=== PATIENT | male | born 1940 | race Two or more races ===

== ENCOUNTER 2020-07-14 14:09 | Outpatient (CLI) | payer OTHER | END 2020-07-14 14:20 | disposition home or self-care (01) | LOC: LAB 14:09 | PROVIDERS: ATTEND Specialist | DX: K38.2 Diverticulum of appendix (principal) ==

== ENCOUNTER → 2020-07-14 | Outpatient (CLI) | payer OTHER | END | disposition home or self-care (01) | LOC: TOM 15:11 | PROVIDERS: ATTEND Specialist | DX: K57.90 Diverticulosis of intestine, part unspecified, without perforation or abscess without bleeding (principal); K44.9 Diaphragmatic hernia without obstruction or gangrene; K59.09 Other constipation; K38.2 Diverticulum of appendix ==

== ENCOUNTER 2020-08-04 09:31 | Emergency (ER) | payer OTHER ==
[~2020-08-04] VITALS: Ht 170.2 cm; Wt 70.8 kg
== END 2020-08-04 11:30 | disposition home or self-care (01) ==
LOC: ER 09:31
DX: R53.81 Other malaise (principal); F06.4 Anxiety disorder due to known physiological condition; Z03.818 Encounter for observation for suspected exposure to other biological agents ruled out

== ENCOUNTER 2021-12-19 09:39 | Outpatient (CLI) | payer OTHER | END 2021-12-19 09:45 | disposition home or self-care (01) | LOC: TOM 09:39 | PROVIDERS: ATTEND Specialist | DX: K40.90 Unilateral inguinal hernia, without obstruction or gangrene, not specified as recurrent (principal) ==

== ENCOUNTER 2022-02-27 05:45 | Day surgery (SDC) | payer OTHER ==
[~2022-02-27] VITALS: Ht 162.6 cm; Wt 60.3 kg
== END 2022-02-27 15:50 | disposition home or self-care (01) ==
LOC: CIR.AMB 05:45
PROVIDERS: ATTEND Specialist
DX: K40.90 Unilateral inguinal hernia, without obstruction or gangrene, not specified as recurrent (principal); Z20.822 Contact with and (suspected) exposure to COVID-19

== ENCOUNTER 2023-04-23 09:51 | Emergency (ER) | payer OTHER ==
[~2023-04-23] VITALS: Ht 162.6 cm; Wt 62.6 kg
[2023-04-23] MEDS ORDERED: SILODOSIN8 MG PO (10:27)
[2023-04-23 13:55] LABS: HEMATOCRIT 37.9 % (39.0-48.0); MEAN CELL VOLUME 93.6 fL (80.0-100.00); MEAN CORPUSCULAR HGB CONC 34.2 g/dl (32.0-36.0); PLATELET COUNT 178 K/uL (150-450); RED BLOOD COUNT 4.05 M/uL (4.00-6.00); RED CELL DISTRIBUTION WIDTH 13.9 % (11.5-14.5)
[2023-04-23 14:09] LABS: ALBUMIN 3.9 gm/dL (3.4-5.0); BILIRUBIN TOTAL 0.46 mg/dL (0.3-1.2); CALCIUM 9.5 mg/dL (8.5-10.1); CREATININE SERUM 0.96 mg/dL (0.70-1.30); GFR 75.17; GLOBULINA 4.2 G/DL (2.4-3.5); POTASSIUM 4.9 mEq/L (3.5-5.1); TOTAL PROTEIN 8.1 gm/dL (6.4-8.2)
[2023-04-23] MEDS ORDERED: TAMS0.4C PO (15:38)
[2023-04-23] MEDS ORDERED: MOTRIN IB200 M1 PO (15:38)
== END 2023-04-23 16:13 | disposition home or self-care (01) ==
LOC: ER 09:52
PROVIDERS: General Practice
DX: R10.32 Left lower quadrant pain (principal); N20.9 Urinary calculus, unspecified; K57.30 Diverticulosis of large intestine without perforation or abscess without bleeding
CPT/HCPCS: 36415; 74176; 96372; 99284; J1885